=== PATIENT | male | born 1960 | race Caucasian/White ===

== ENCOUNTER 2024-05-08 16:29 | Emergency (ER) | payer OTHER, SELFPAY ==
[2024-05-08 16:35] VITALS: BP 168/93; PULSE 77; RESP 16; TEMP 36.3; O2SAT 97; BMI 23.6
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
[2024-05-08] MEDS: LIDOCAINE 1% W/EPI 20 ML INJ (17:49)
[2024-05-08 18:48] VITALS: BP 155/86; PULSE 74; RESP 16; O2SAT 99
== END 2024-05-08 18:49 | disposition home or self-care (01) ==
PROVIDERS: Emergency Provider Physician Assistant
DX: S01.01XA Laceration without foreign body of scalp, initial encounter (principal); R11.0 Nausea; V89.2XXA Person injured in unspecified motor-vehicle accident, traffic, initial encounter
CPT/HCPCS: 12002; 70450; 72125; 99283; 99284

== ENCOUNTER 2024-05-15 19:12 | Emergency (ER) | payer OTHER, SELFPAY ==
[2024-05-15 19:14] VITALS: PULSE 78; RESP 16; TEMP 36.6; O2SAT 98
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
--- NOTE | 2024-05-15 19:27 | PC.NURSE ---
Dr Masterson eyeballed sutures, cleared for removal. Sutures removed patient tolerated well, Scant bleeding. Discussed wound cleaning and management.
== END 2024-05-15 19:29 | disposition home or self-care (01) ==
PROVIDERS: Emergency Provider Emergency Medicine
DX: Z48.02 Encounter for removal of sutures (principal)
CPT/HCPCS: 99281